=== PATIENT | female | born 1995 | race Caucasian/White ===

== ENCOUNTER 2017-12-29 11:32 | Emergency (ER) | payer OTHER ==
[2017-12-29] MEDS ORDERED: PREDNISONE 20 MG TABLET PO ONE (12:07)
[2017-12-29] MEDS ORDERED: VALACYCLOVIR HCL 500 MG TABLET PO ONE (12:07)
[2017-12-29 12:36] LABS: ABSOLUTE BASOPHILS # (AUTO) 0.1 10^3/uL (0.0-0.2); ABSOLUTE LYMPHOCYTES (AUTO) 1.5 10^3/uL (0.5-4.7); ABSOLUTE MONOCYTES (AUTO) 0.4 10^3/uL (0.1-1.4); BASOPHILS % (AUTO) 0.7 % (0-2); EOSINOPHILS % (AUTO) 0.6 % (0-6); HEMOGLOBIN 13.1 g/dL (12.0-15.5); LYMPHOCYTES % (AUTO) 18.7 % (13-45); MEAN CORPUSCULAR HEMOGLOBIN 28.1 pg (27.0-33.4); MEAN CORPUSCULAR HGB CONC 32.8 g/dL (32.0-36.0); MEAN CORPUSCULAR VOLUME 86 fl (80-97); MONOCYTES % (AUTO) 4.6 % (3-13); PLATELET COUNT 228 10^3/uL (150-450); RED BLOOD COUNT 4.66 10^6/uL (3.72-5.28); RED CELL DISTRIBUTION WIDTH 14.3 % (11.5-14.0); SEGMENTED NEUTROPHILS % (AUTO) 75.4 % (42-78); TOTAL CELLS COUNTED % (AUTO) 100 %; WHITE BLOOD COUNT 7.9 10^3/uL (4.0-10.5)
[2017-12-29 12:45] LABS: APPEARANCE,URINE SLIGHTLY-CLOUDY; BILIRUBIN,URINE NEGATIVE (NEGATIVE); COLOR,URINE STRAW; GLUCOSE, URINE NEGATIVE (NEGATIVE); KETONES,URINE 25 mg/dL (NEGATIVE); PROTEIN,URINE 100 mg/dL (NEGATIVE); URINE SPECIFIC GRAVITY 1.024
[2017-12-29 12:46] LABS: LEUKOCYTE ESTERASE,URINE LARGE (NEGATIVE); NITRITE,URINE POSITIVE (NEGATIVE)
[2017-12-29 12:55] LABS: ALANINE AMINOTRANSFERASE 24 U/L (9-52); ALBUMIN 4.6 g/dL (3.5-5.0); ALKALINE PHOSPHATASE 59 U/L (38-126); ANION GAP 13 (5-19); ASPARTATE AMINO TRANSFERASE 17 U/L (14-36); BILIRUBIN,DIRECT 0.1 mg/dL (0.0-0.4); BILIRUBIN,TOTAL 0.4 mg/dL (0.2-1.3); BLOOD UREA NITROGEN 13 mg/dL (7-20); CALCIUM 10.2 mg/dL (8.4-10.2); CARBON DIOXIDE 25 mmol/L (22-30); CHLORIDE 103 mmol/L (98-107); CREATINE KINASE 36 U/L (30-135); GLUCOSE 82 mg/dL (75-110); IRON 106.2 ug/dL (37-170); SODIUM 140.5 mmol/L (137-145)
[2017-12-29 13:08] LABS: CREATINE KINASE MB < 0.22 ng/mL (<4.55); TROPONIN I < 0.012 ng/mL
[2017-12-29] MEDS ORDERED: CEFTRIAXONE INJ 1000 MG VIAL IV ONE (13:21)
[2017-12-29] MEDS ORDERED: DOXYCYCLINE HYCLATE 100 MG TABLET PO ONE (13:33)
--- NOTE | 2017-12-29 13:42 | ER Document Report ---
ED General - General Chief Complaint: Facial Droop Stated Complaint: RIGHT SIDED FACIAL NUMBNESS Time Seen by Provider: 12/29/17 11:47 Mode of Arrival: Medic Information source: Patient Notes: Pt is a 22 year old female who presents to the ER today for watering of her right eye, can't close her right eye, facial droop of the right side and numbness/tingling of the right side of her face that she woke up with today around 7am. Pt denies any numbness or tingling anywhere else, weakness on one side or the other as anywhere else on her body. 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 Patient denies any slurred speech, blurred vision or confusion. She denies being bitten by a tick that she knows of. She denies any history of HIV or herpes. TRAVEL OUTSIDE OF THE [place] IN LAST 30 DAYS: No - Related Data Allergies/Adverse Reactions: No Known Allergies Allergy (Unverified 12/29/17 12:30) Past Medical History - General Information source: Patient - Social History Smoking Status: Unknown if Ever Smoked Family History: Reviewed & Not Pertinent Review of Systems - Review of Systems Constitutional: No symptoms reported EENT: No symptoms reported Cardiovascular: No symptoms reported Respiratory: No symptoms reported Gastrointestinal: No symptoms reported Genitourinary: No symptoms reported Female Genitourinary: No symptoms reported Musculoskeletal: No symptoms reported Skin: No symptoms reported Hematologic/Lymphatic: No symptoms reported Neurological/Psychological: See HPI Physical Exam - Vital signs Vitals: Temp Pulse Resp BP Pulse Ox 97.8 F 103 H 18 141/89 H 100 12/29/17 11:42 12/29/17 11:42 12/29/17 11:42 12/29/17 11:42 12/29/17 11:42 - Notes Notes: PHYSICAL EXAMINATION: GENERAL: Well-appearing and in no acute distress. HEAD: Atraumatic, normocephalic. EYES: Pupils equal round and reactive to light, extraocular movements intact, sclera anicteric, conjunctiva watering and slightly erythematous to the right eye ENT: ear canals without erythema or foreign body, TMs pearly story with good bony landmarks, nares patent, oropharynx clear without exudates. Moist mucous membranes. NECK: Normal range of motion, supple without lymphadenopathy LUNGS: CTAB and equal. No wheezes rales or rhonchi. HEART: Regular rate and rhythm without murmurs ABDOMEN: Soft, no tenderness. No guarding, no rebound BACK: no vertebral tenderness, normal ROM GI/: no CVA tenderness EXTREMITIES: Normal range of motion, no pitting edema. No cyanosis. NEUROLOGICAL:right sided facial droop, weakness of right eyebrow, right eyelid, right side of mouth, right side of tongue, right eye will not close completely and tightly, otherwise Good and equal strength bilaterally to all extremities, Kernig and Brudzinski's signs negative, Romberg's test normal, normal heel to ivy testing PSYCH: Normal mood, normal affect. SKIN: Warm, Dry, normal turgor, no rashes or lesions noted Course - Re-evaluation Re-evalutation: 12/29/17 13:41 Lab work is unremarkable today, HIV panel and Lyme disease panel pending. 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 Will treat her with Valtrex and prednisone , also placing her on doxycycline because she has a urinary tract infection today with positive nitrites, large leukocytes, 152 white blood cells. This will also cover for Lyme disease. 12/29/17 13:42 - Vital Signs Vital signs: Temp Pulse Resp BP Pulse Ox 97.6 F 99 18 130/84 H 100 12/29/17 14:46 12/29/17 14:46 12/29/17 14:46 12/29/17 14:46 12/29/17 14:46 - Laboratory Result Diagrams: 12/29/17 12:13 12/29/17 12:13 Laboratory results interpreted by me: 12/29/17 12/29/17 12:03 12:13 RDW 14.3 H Urine Protein 100 H Urine Ketones 25 H Urine Blood MODERATE H Urine Nitrite POSITIVE H Urine Urobilinogen 2.0 H Ur Leukocyte Esterase LARGE H Discharge - Discharge Clinical Impression: Stringer's palsy Urinary tract infection Qualifiers: Urinary tract infection type: site unspecified Hematuria presence: with hematuria Qualified Code(s): N39.0 - Urinary tract infection, site not specified Condition: Stable Disposition: HOME, SELF-CARE Instructions: Stringer's Palsy ([facility]), Urinary Tract Infection ([facility]) Additional Instructions: Keep the eye taped closed at night especially when you sleep to prevent it from drying out. Drink plenty of fluids. We will call you with Lyme disease results , HIV panel was also drawn today we will call you with those results as well. Return immediately for any new or worsening symptoms. Follow up with primary care provider, call tomorrow to make followup appointment. Prescriptions: Doxycycline Hyclate 100 mg PO BID #14 capsule Prednisone 60 mg PO DAILY #21 tablet Valacyclovir HCl [Valtrex 500 Mg Tablet] 1,000 mg PO BID #28 tablet Forms: Return to Work
[2017-12-29 14:51] VITALS: BP 130/84
[2018-01-01 17:38] LABS: LYME DISEASE IGM AB <0.80 index (0.00-0.79)
== END 2017-12-29 15:09 | disposition home or self-care (01) ==
LOC: ER 11:32
DX: G51.0 Bell's palsy (principal); N39.0 Urinary tract infection, site not specified
CPT/HCPCS: 99284; 36415; 82553; 82550; 83540; 85025; 80053; 81001; 84484; 86701; 86618 ×2; 86617 ×2; J7512